=== PATIENT | female | born 1965 | race Caucasian/White ===

== ENCOUNTER 2019-11-28 18:56 | Observation (INO) | payer BC, SELFPAY ==
[2019-11-28 19:04] VITALS: BP 165/77; PULSE 90; RESP 17; TEMP 36.7; O2SAT 97; BMI 34.9
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
--- NOTE | 2019-11-28 19:15 | DI.RAD.S_ITS ---
PROCEDURE: XR RIBS LT MIN 3V W CXR1V INDICATIONS: fall with left sided rib pain, sternum pain TECHNIQUE: Two views of the left ribs were acquired, along with a single view chest. COMPARISON: None. FINDINGS: Surgical changes and devices: None. Bones and chest wall: No visible displaced rib fractures or dislocations. No suspicious bony lesions. There is a small amount of soft tissue gas in the lateral left chest and mid lung level. Lungs and pleura: Small left apical pneumothorax. Minor horizontal atelectatic change at the left lower lung. No evidence of tension. Right lung is normally aerated. Mediastinum: Mediastinal contours appear normal. No mediastinal shift. Heart size is normal. IMPRESSION: 1. Small left apical pneumothorax. 2. No visible rib or sternal fracture. 3. Trace amount of left axillary soft tissue gas suggests occult rib fracture. 4. Discussed with Dr. Brennan in the emergency room at 20:14 hours. Dictated by: Yanelis Loyd M.D. on 11/28/2019 at 20:10 Approved by: Yanelis Loyd M.D. on 11/28/2019 at 20:17
--- NOTE | 2019-11-28 20:30 | PC.NURSE ---
md and surgeon at bedside for eval for chest tube placement.
[2019-11-28] MEDS: HYDROMORPHONE 0.5 MG INJ IV (20:31)
[2019-11-28] MEDS: BUPIVACAINE 0.5% W/ EPI (PF) 30 ML VIAL 5 ML SUBCUT (20:31)
[2019-11-28] MEDS: SODIUM CHLORIDE 0.9% 1,000 ML 125 ML IV (20:32)
[2019-11-28 20:49] LABS: Add Manual Diff / Slide Review NO; Basophils Absolute Auto 100 /uL (0-100); Basophils Percent Auto 0.6 % (0-2); Eosinophils Absolute Auto 0 /uL (0-450); Eosinophils Percent Auto 0.2 % (2-4); Hematocrit 35.5 % (36-46); Hemoglobin 11.7 g/dL (12.0-16.0); Lymphocytes Absolute Auto 1200 /uL (1100-4500); Lymphocytes Percent Auto 10.1 % (25-40); Monocytes Absolute Auto 600 /uL (0-900); Monocytes Percent Auto 4.9 % (3-14); Neutrophils Absolute Auto 9800 /uL (1500-7000); Neutrophils Percent Auto 84.2 % (50-75); Platelet Count 214 X10^3/uL (150-400); Red Blood Cell Count 4.18 X10^6/uL (4.0-5.2); Red Cell Distribution Width 13.7 % (11.6-14.8); White Blood Cell Count 11.6 X10^3/uL (4.5-11.0)
[2019-11-28 21:01] LABS: BUN Creatinine Ratio 21.9 (6-22); Blood Urea Nitrogen 16 mg/dL (7-17); Calcium 9.3 mg/dL (8.4-10.2); Carbon Dioxide 25 mmol/L (22-32); Chloride 103 mmol/L (98-107); Estimated Glomerular Filt Rate > 60.0 mL/min (>60); Glucose 114 mg/dL (70-100); HEMOLYSIS 25 (0-50); Potassium 4.1 mmol/L (3.4-5.1); Sodium 135 mmol/L (137-145)
--- NOTE | 2019-11-28 21:01 | DI.RAD.S_ITS ---
PROCEDURE: XR CHEST 1V INDICATIONS: repeat, trend pneumo TECHNIQUE: One view of the chest was acquired. COMPARISON: [facility], CR, XR RIBS LT MIN 3V W CXR1V, 11/28/2019, 19:07. FINDINGS: Surgical changes and devices: None. Lungs and pleura: Lung volumes are lower.. Small left pneumothorax, similar to slightly smaller compared to the prior study.. Mediastinum: Mediastinal contours appear normal. Heart size is normal. Bones and chest wall: No suspicious bony lesions. Trace left axillary soft tissue gas. IMPRESSION: Probable expiratory film with stable is minimally smaller size of left pneumothorax. Dictated by: Yanelis Loyd M.D. on 11/28/2019 at 22:02 Approved by: Yanelis Loyd M.D. on 11/28/2019 at 22:03
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
--- NOTE | 2019-11-28 21:27 | PC.NURSE ---
pt to ct
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
[2019-11-28 22:35] VITALS: BP 130/75; PULSE 81; RESP 16; TEMP 36.8; O2SAT 99
--- NOTE | 2019-11-28 23:02 | PC.ADMIT ---
[facility] Admission Note: The patient,Makayla Clancy,54 y/o, was given written information regarding hospital policies, unit procedures and contact persons. Patient's smoking status: Never smoker. Pt arrived from ED via w/c. Ambulated to bed. Steady on feet. Reports Left chest tenderness and pain with breathing. VSS. O2 Sats 99% RA. Portable pulse left on for CPOX. Oriented to room and call system. Pt verbalized she will call for needs. Vital Signs - 8 hr 11/28/19 19:04 11/28/19 22:35 Temperature 98.1 F 98.2 F Pulse Rate 90 81 Respiratory Rate 17 16 Blood Pressure 165/77 H 130/75 Pulse Oximetry 97 99
[2019-11-28] MEDS: LACTATED RINGERS 1,000 ML 100 ML IV (23:45)
[2019-11-28 23:47] VITALS: BP 108/59; PULSE 79; RESP 18; TEMP 37.2; O2SAT 96
[2019-11-28 23:50] VITALS: BMI 34.9
[2019-11-29] MEDS: HYDROMORPHONE 0.5 MG INJ IV ×2 (00:06→09:41)
--- NOTE | 2019-11-29 00:28 | PC.NURSE ---
Addendum entered by Tatiana Sethi R.N. 11/29/19 06:43: Slept most of shift. O2 sat maintaining 93-95% on RA. States pain minimal this morning at 2/10 and declines pain medication. Original Note: Patient is alert and oriented. Breath sounds diminished throughout and is breathing shallowly related to pain from fx ribs/pneumothorax; RA sat 96%; is on continuous pulse oximetry. HRR; telemetry reading was SR w/occasional PVC's. Denies nausea. BT hypoactive; abdomen is soft. Denies dysuria, frequency, urgency or incontinence. Able to move self in bed. Will provide SBA when out of bed for safety. States sternal pain and left scapular pain is 4/10 but sharper and more severe with deep breathing or coughing; medicated with Dilaudid. Instructed to CDB. Has abrasions/bruising on left elbow and upper arm as well as right knee, right lower leg and medial left ankle. Refused SCD's so reminded to be ankle waving when awake. Fall risk score is moderate; verbalizes understanding to call for assistance prior to getting out of bed.
[2019-11-29 03:11] LABS: COVID19 -Nasal RAPID Negative (Negative)
[2019-11-29 05:16] VITALS: BP 111/64; PULSE 84; RESP 15; TEMP 36.4; O2SAT 95
--- NOTE | 2019-11-29 06:00 | DI.RAD.S_ITS ---
PROCEDURE: XR CHEST 1V INDICATIONS: f/u on size of pneumothorax. TECHNIQUE: One view of the chest was acquired. COMPARISON: [facility], CR, XR CHEST 1V, 11/28/2019, 21:03. FINDINGS: Surgical changes and devices: None. Lungs and pleura: Small left apical pneumothorax is unchanged when compared with the study from November 28, 2019. Lungs are otherwise clear. Mediastinum: Mediastinal contours appear normal. Heart size is normal. Bones and chest wall: No suspicious bony lesions. Overlying soft tissues appear unremarkable. IMPRESSION: Stable small left apical pneumothorax. Dictated by: Laura Mayen M.D. on 11/29/2019 at 8:32 Approved by: Laura Mayen M.D. on 11/29/2019 at 8:32
[2019-11-29 09:13] VITALS: BP 122/64; PULSE 79; RESP 21; TEMP 37.2; O2SAT 95
[2019-11-29] MEDS: LACTATED RINGERS 1,000 ML 100 ML IV (09:33)
[2019-11-29] MEDS: CYCLOBENZAPRINE 10 MG TABLET PO (12:13)
[2019-11-29] MEDS: KETOROLAC 30 MG/ML VIAL IV (12:13)
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
[2019-11-29 12:34] VITALS: BP 127/69; PULSE 79; RESP 29; TEMP 37.4; O2SAT 94
--- NOTE | 2019-11-29 13:12 | PC.NURSE ---
Discharge note: Patient discharged home per MD order, discussed importance of F/U with PMD within 1 week. RTC if worsening SOB, pain, or any concerns. Continue on RA, sats 95-96%. NO difficulty breathing or SOB. Speaking in full sentences. Verbalized understanding of instructions. Home via private vehicle in stable condition.
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
== END 2019-11-29 15:00 | disposition home or self-care (01) ==
LOC: ED 20:27 → ICU 11-29 12:24 → AC 12-05 09:17
PROVIDERS: Admitting Provider Specialist; Emergency Provider Emergency Medicine; Referring Provider Emergency Medicine; Visit Provider Specialist
DX: S27.0XXA Traumatic pneumothorax, initial encounter (principal); S22.42XA Multiple fractures of ribs, left side, initial encounter for closed fracture; V18.0XXA Pedal cycle driver injured in noncollision transport accident in nontraffic accident, initial encounter; Y93.55 Activity, bike riding; Z11.59 Encounter for screening for other viral diseases
CPT/HCPCS: 36415; 71045; 71101; 71260; 80048; 85025; 87635; 93005; 93010; 96372; 96374; 99217; 99219; 99284; G0378; J1170; J1885; Q9967